=== PATIENT | female | born 1970 | race Caucasian/White ===

== ENCOUNTER 2023-09-08 16:57 | Inpatient (IN) | payer OTHER, SELFPAY ==
[2023-09-08] VITALS (10 sets, daily range): BP systolic 141–180; BP diastolic 69–104; BMI 28.7; BMI 27.7
--- NOTE | 2023-09-08 12:38 | ED.GENMED ---
History of Present Illness
<Naye Dunbar PA-C - Last Filed: 09/09/23 01:20>
General
Chief Complaint: Cardiac Symptoms
Source: patient
Exam Limitations: none
Time Seen by Provider: 09/08/23 12:25
Nursing documentation reviewed up to this point in time: agreed with
Travel History
Have you had any contact with someone who has COVID-19?: No
Do you have any symptoms of coronavirus? Fever > 100 degrees, chills, cough, shortness of breath, sore throat, loss of taste or smell, muscle aches, or headache?: No
History of Present Illness
History of Present Illness:
Patient is a 53 year old with hx hypothyroid presenting for evaluation of left-sided chest pain with radiation to the back. Patient states that chest pain woke her up from her sleep at 5 AM this morning which she describes as a pressure type
sensation in the left mid chest with some radiation into her bilateral shoulders and arms. She also endorses an intense muscular pain in her mid upper back. She denies any exudative or pleuritic component to pain. She denies any shortness of
breath, GI symptoms, symptoms.
Patient denies any recent strenuous activities or trauma.
She denies any history of blood clots or family history of clotting disorders. No recent travel. No recent surgeries.
Of note�she does state that she was fairly sick about 10 days ago with an upper respiratory infection. Symptoms have been improved for the past week. She denies any recent fever, cough, or abdominal pain.
Past History
<Naye Dunbar PA-C - Last Filed: 09/09/23 01:20>
Past History
ED Past Medical History: Hypothyroidism
ED Past Surgical History: None and Other (Thyroidectomy)
Social History
Tobacco: Non-smoker
Personal:
Living: with family
Employment: Employed
Phy Exam
<Naye Dunbar PA-C - Last Filed: 09/09/23 01:20>
Physical Exam
Physical Exam:
General: Well appearing and non-toxic
Vitals: Hypertensive, otherwise vital signs stable, afebrile
HEENT: Atraumatic, normocephalic; pupils equal round and reactive to light bilaterally, extraocular muscle intact, protecting airway
Neck: appears supple, no JVD
CV: Regular rate and rhythm, heart sounds normal, no evidence of cyanosis
Resp: No evidence of respiratory distress, lungs clear
Abd: Soft, nontender, non-distended
Extremities: No deformities, no evidence of cyanosis or edema; DP pulses palpable bilaterally
Neuro: alert and oriented x 3; grossly intact
Psych: Normal affect
Skin: Intact, no rashes
Scores
<MARCELL Ochoa Last Filed: 09/09/23 01:20>
Heart Score for Chest Pain Patients
STEMI patient?: No
History: Moderately Suspicious
ECG: Normal
Age: >45 - <65 years
Risk Factors: No Risk Factors
Troponin: >1 - <3 x Normal Limit
Heart Score for Chest Pain Patients: 3
Heart Score Risk: 2.5% MACE over next 6 weeks
Course
<MARCELL Ochoa Last Filed: 09/09/23 01:20>
Orders/Labs/Results
Orders:
Orders
09/08/23 Lunch
Cholesterol Lowering
At Your Request: Full Participation
Does patient need a safe tray?: No
09/08/23 12:10
EKG [Electrocardiogram (*1)] Urgent
Reason for Study: Chest Pain
EKG- Treatment ONCE
09/08/23 12:51
C-Reactive Protein Urgent
Comment: ADD ON
Complete Blood Count/With Diff Urgent
Comprehensive Metabolic Panel Urgent
D-Dimer Urgent
Erythrocyte Sed Rate Urgent
Comment: ADD ON
PTT Urgent
Comment: ADD ON
Troponin I Urgent
09/08/23 13:14
CR Chest - 2 Views Urgent
Comment:
Reason For Exam: left sided chest pain, radiation into back
09/08/23 13:33
CT Chest Pe Study Urgent
Comment:
Reason For Exam: chest pain/upper back pain; elevated troponin
09/08/23 14:45
Aspirin Chewable [Low Strength Aspirin] 324 mg PO NOW STA
09/08/23 15:27
Heparin 4,000 units IV NOW STA
Nursing to Place Non Medication Order As Directed
Physician Order: PTT 6 hours after initial start of Heparin infusion
Above order entered?: Yes
09/08/23 15:28
Consult Cardiology [CARDIOLOGY CONSULT] Urgent
Consulting Provider: Orlando Carrion
Was physician already notified: Yes
Nitroglycerin Sublingual [Nitrostat (Sublingual)] 0.4 mg SL NOW STA
09/08/23 15:30
Heparin 41749 Units/250 ml 25,000 units in 250 ml IV PER PROTOCOL
Weight to be used for heparin protocol in kilograms (kg):: 80.6
Protocol:: Cardiac Tx/Acute Coronary
PTT Goal Range to be used:: PTT 73 to 111 seconds
Order type:: Initial
INITIAL Infusion Dose (UNITS/KG/hr) & then follow protocol:: 15 units/kg/hr
Infusion Dose in UNITS/hr & then follow protocol (UNITS/hr):: 1,200
INFUSION RATE in mL/hr & then follow protocol (mL/hr):: 12
PTT less than or equal to 64 seconds:: Increase rate by 200 units/hr (+ 2 mL/hr)
PTT 64.1 to 72.9 seconds:: Increase rate by 100 units/hr (+ 1 mL/hr)
PTT 73 to 111 seconds:: Target Range. No change in rate.
PTT 111.1 to 130.9 seconds:: Decrease rate by 100 units/hr (- 1 mL/hr)
PTT 131 to 199.9 seconds:: HOLD for 1 hr. Then decrease rate by 200 units/hr (- 2 mL/hr)
PTT greater than or equal to 200 seconds:: HOLD for 2 hrs & Notify Provider. Then decrease by 200 units/hr (-
2 mL/hr)
Lab follow-up:: Each change, PTT q6h until 2 consecutive are therapeutic. Then PTT
daily.
09/08/23 15:39
Add On- LAB Urgent
Tests Added?: PTT
09/08/23 15:46
Admit/Transfer Patient As Directed
Co-Sign Provider:
Level of Care: Inpatient admission
Assign to:: IVU
Physician / Group: Hospitalist
Diagnosis: Chest pain
Reason for Hospitalization: .
Expected length of stay greater than two midnights?: Yes
ELOS- Estimated Length of Stay in days: 3
I certify the patient meets the requirements for IP care: Yes
09/08/23 15:47
Code Status As Directed
Resuscitation Status: Full Code
09/08/23 15:51
Troponin I Urgent
09/08/23 16:51
Clopidogrel Bisulfate [Plavix] 600 mg PO NOW STA
09/08/23 17:59
Nitroglycerin 100 mg/250 ml [Nitroglycerin Premix] 100 mg in 250 ml IV PER PROTOCOL
Currently infusing. Continue current dose and titrate:: Yes
Titrate to keep:: MAP 70-100 mmHg
Titrate by mcg/min:: 5 mcg/min, may increase by 10 mcg/min if dose > 20 mcg/min
Frequency of titrations (minutes):: every 3-5 minutes
Maximum dose in mcg/min:: 200
Begin to taper infusion when:: Remained at goal for 2hrs
Taper by mcg/min:: 5 mcg/min
Frequency of taper (minutes) if patient maintains goal:: 30
Taper to off?: Yes
If infusion off & no longer maintaining goal:: Contact Provider
09/08/23 17:59
Echo 2D MMode Color/Doppler [Echo 2D MMode Color/Doppler] Routine
Reason for Study: chest pain
09/08/23 22:27
PTT Routine
09/09/23 07:00
Levothyroxine [Synthroid] 125 mcg PO DAILY AT 0700
09/09/23 08:00
Aspirin Chewable [Low Strength Aspirin] 81 mg PO DAILY
Clopidogrel Bisulfate [Plavix] 75 mg PO DAILY
Abnormal Lab Results
09/08/23 09/08/23
12:51 15:51
WBC 11.3 H 10^3/uL
(4.8-10.8)
MCH 31.4 H pg
(27.0-31.0)
Plt Count 453 H 10^3/uL
(130-400)
Absolute Neuts (auto) 8.4 H 10^3/uL
(1.4-6.5)
Absolute Monos (auto) 0.7 H 10^3/uL
(0.1-0.6)
Lymphocytes % 18.5 L %
(20.5-51.1)
APTT 23.3 L Sec
(23.4-35.0)
Sodium 134 L mmol/L
(135-145)
Glucose 100 H mg/dl
(70-99)
Troponin I 0.170 H* ng/ml 0.596 H* D ng/ml
09/08/23 12:51
09/08/23 12:51
Vital Signs
Initial and Last Documented VS:
Initial Vital Signs
Temp Pulse Resp BP Pulse Ox
98.7 F 67 17 180/104 98
09/08/23 12:11 09/08/23 12:11 09/08/23 12:11 09/08/23 12:11 09/08/23 12:11
Last Documented Vital Signs
Temp Pulse Resp BP Pulse Ox
97.9 F 65 18 171/84 97
09/08/23 23:10 09/08/23 22:20 09/09/23 00:13 09/08/23 22:20 09/08/23 23:10
<Ari Chakraborty MD - Last Filed: 09/08/23 15:33>
Orders/Labs/Results
Orders:
Orders
09/08/23 Lunch
Cholesterol Lowering
At Your Request: Full Participation
Does patient need a safe tray?: No
09/08/23 12:10
EKG [Electrocardiogram (*1)] Urgent
Reason for Study: Chest Pain
EKG- Treatment ONCE
09/08/23 12:51
C-Reactive Protein Urgent
Comment: ADD ON
Complete Blood Count/With Diff Urgent
Comprehensive Metabolic Panel Urgent
D-Dimer Urgent
Erythrocyte Sed Rate Urgent
Comment: ADD ON
PTT Urgent
Comment: ADD ON
Troponin I Urgent
09/08/23 13:14
CR Chest - 2 Views Urgent
Comment:
Reason For Exam: left sided chest pain, radiation into back
09/08/23 13:33
CT Chest Pe Study Urgent
Comment:
Reason For Exam: chest pain/upper back pain; elevated troponin
09/08/23 14:45
Aspirin Chewable [Low Strength Aspirin] 324 mg PO NOW STA
09/08/23 15:27
Heparin 4,000 units IV NOW STA
Nursing to Place Non Medication Order As Directed
Physician Order: PTT 6 hours after initial start of Heparin infusion
Above order entered?: Yes
09/08/23 15:28
Consult Cardiology [CARDIOLOGY CONSULT] Urgent
Consulting Provider: Orlando Carrion
Was physician already notified: Yes
Nitroglycerin Sublingual [Nitrostat (Sublingual)] 0.4 mg SL NOW STA
09/08/23 15:30
Heparin 99076 Units/250 ml 25,000 units in 250 ml IV PER PROTOCOL
Weight to be used for heparin protocol in kilograms (kg):: 80.6
Protocol:: Cardiac Tx/Acute Coronary
PTT Goal Range to be used:: PTT 73 to 111 seconds
Order type:: Initial
INITIAL Infusion Dose (UNITS/KG/hr) & then follow protocol:: 15 units/kg/hr
Infusion Dose in UNITS/hr & then follow protocol (UNITS/hr):: 1,200
INFUSION RATE in mL/hr & then follow protocol (mL/hr):: 12
PTT less than or equal to 64 seconds:: Increase rate by 200 units/hr (+ 2 mL/hr)
PTT 64.1 to 72.9 seconds:: Increase rate by 100 units/hr (+ 1 mL/hr)
PTT 73 to 111 seconds:: Target Range. No change in rate.
PTT 111.1 to 130.9 seconds:: Decrease rate by 100 units/hr (- 1 mL/hr)
PTT 131 to 199.9 seconds:: HOLD for 1 hr. Then decrease rate by 200 units/hr (- 2 mL/hr)
PTT greater than or equal to 200 seconds:: HOLD for 2 hrs & Notify Provider. Then decrease by 200 units/hr (-
2 mL/hr)
Lab follow-up:: Each change, PTT q6h until 2 consecutive are therapeutic. Then PTT
daily.
09/08/23 15:39
Add On- LAB Urgent
Tests Added?: PTT
09/08/23 15:46
Admit/Transfer Patient As Directed
Co-Sign Provider:
Level of Care: Inpatient admission
Assign to:: IVU
Physician / Group: Hospitalist
Diagnosis: Chest pain
Reason for Hospitalization: .
Expected length of stay greater than two midnights?: Yes
ELOS- Estimated Length of Stay in days: 3
I certify the patient meets the requirements for IP care: Yes
09/08/23 15:47
Code Status As Directed
Resuscitation Status: Full Code
09/08/23 15:51
Troponin I Urgent
09/08/23 16:51
Clopidogrel Bisulfate [Plavix] 600 mg PO NOW STA
09/08/23 17:59
Nitroglycerin 100 mg/250 ml [Nitroglycerin Premix] 100 mg in 250 ml IV PER PROTOCOL
Currently infusing. Continue current dose and titrate:: Yes
Titrate to keep:: MAP 70-100 mmHg
Titrate by mcg/min:: 5 mcg/min, may increase by 10 mcg/min if dose > 20 mcg/min
Frequency of titrations (minutes):: every 3-5 minutes
Maximum dose in mcg/min:: 200
Begin to taper infusion when:: Remained at goal for 2hrs
Taper by mcg/min:: 5 mcg/min
Frequency of taper (minutes) if patient maintains goal:: 30
Taper to off?: Yes
If infusion off & no longer maintaining goal:: Contact Provider
09/08/23 17:59
Echo 2D MMode Color/Doppler [Echo 2D MMode Color/Doppler] Routine
Reason for Study: chest pain
09/08/23 22:27
PTT Routine
09/09/23 07:00
Levothyroxine [Synthroid] 125 mcg PO DAILY AT 0700
09/09/23 08:00
Aspirin Chewable [Low Strength Aspirin] 81 mg PO DAILY
Clopidogrel Bisulfate [Plavix] 75 mg PO DAILY
Abnormal Lab Results
09/08/23 09/08/23
12:51 15:51
WBC 11.3 H 10^3/uL
(4.8-10.8)
MCH 31.4 H pg
(27.0-31.0)
Plt Count 453 H 10^3/uL
(130-400)
Absolute Neuts (auto) 8.4 H 10^3/uL
(1.4-6.5)
Absolute Monos (auto) 0.7 H 10^3/uL
(0.1-0.6)
Lymphocytes % 18.5 L %
(20.5-51.1)
APTT 23.3 L Sec
(23.4-35.0)
Sodium 134 L mmol/L
(135-145)
Glucose 100 H mg/dl
(70-99)
Troponin I 0.170 H* ng/ml 0.596 H* D ng/ml
09/08/23 12:51
09/08/23 12:51
Vital Signs
Initial and Last Documented VS:
Initial Vital Signs
Temp Pulse Resp BP Pulse Ox
98.7 F 67 17 180/104 98
09/08/23 12:11 09/08/23 12:11 09/08/23 12:11 09/08/23 12:11 09/08/23 12:11
Last Documented Vital Signs
Temp Pulse Resp BP Pulse Ox
97.9 F 65 18 171/84 97
09/08/23 23:10 09/08/23 22:20 09/09/23 00:13 09/08/23 22:20 09/08/23 23:10
<Naye Dunbar PA-C - Last Filed: 09/09/23 01:20>
MDM/Problems Addressed
Differential Diagnosis Includes:
Pneumonia, PE, pericarditis, ACS, muscular strain, GERD, doubt dissection
MDM/Problems Addressed:
Patient is a 53 year old female with hx hypothyroid presenting for evaluation of acute onset chest discomfort at 5AM this morning with associated severe back discomfort and tingling down bilateral arms. No exertional or pleuritic component. No
fever, shortness of breath, GI symptoms. Symptoms somewhat improved since onset but chest discomfort and back pain persist. Patient is hypertensive, otherwise VSS. Physical exam as documented above. Heart rate regular, lungs clear. Chest pain
non-reproducible. Full cardiac workup. Check basic labs, troponin, chest xray. Although no shortness of breath- given radiation to back and current OCP use, will check dimer. EKG NSR without signs of ischemia.
CBC with mild leukocytosis, otherwise no clinically significant abnormalities. CMP without any clinically significant abnormalities. Initial troponin elevated at 0.170. Will repeat in 3 hours. Given elevation in troponin will get CTA chest.
CTA chest with no evidence of PE or acute disease of chest. Given symptoms have persisted with elevation in troponin will give 324 aspiring, 0.4 nitro, and start on heparin. Discussed case with cardiology who sees no abnormalities in ekg and
recommend admission to hospitalist. Cardiology will consult.
Will admit patient for further evaluation/management, serial troponins, and concern for NSTEMI. Discussed with hospitalist.
Chronic conditions affecting care:
Hypothyroid
Acute Exacerbation and/or Progression of Chronic Illness:
N/A
<Naye Dunbar PA-C - Last Filed: 09/09/23 01:20>
*Radiology
Radiology exam reviewed: radiology read reviewed
*Pulse Oximetry
Patient hypoxic: no
*EKG
Interpreted by ED Provider?: Yes
EKG Intrepretation Date: 09/09/23
Interpretation: normal
Comparison EKG: no comparison EKG present
Heart Rate: 65
Rate: normal
Rhythm: sinus
Villalba: normal axis
Interval: normal interval
QRS Pattern: normal QRS
Ischemia: no ischemia
*[employer] Interpretation
Rate: normal
Interpretation: normal
Rhythm: sinus
*Critical Care Note
Total Time (30-74mins, 75-104mins- exclusive of procedures): Not Applicable
<Naye Dunbar PA-C - Last Filed: 09/09/23 01:20>
Patient Management
Discussion with other providers: Hospitalist and Ferryboat Operator Helper (cardiology)
ED Attending Note
<Naye Dunbar PA-C - Last Filed: 09/09/23 01:20>
-
Portions of this chart may have been created with voice recognition software.� Occasional wrong word or��sound alike� substitutions may have occurred due to the inherent limitations of voice recognition software.
<Ari Chakraborty MD - Last Filed: 09/08/23 15:33>
ED Attending Note
Patient seen and examined by attending physician: Yes
ED Attending Note:
HPI: 53-year-old female with a past medical history of hypothyroidism presents to the emergency room evaluation of chest pain. Patient reports onset of symptoms at 5 AM she says they woke her from sleep and started rather suddenly. She reports a
dull aching pain in the left side of her chest that radiates through to her back; she says the pain is more sharp in the left scapular region. No clear triggering or relieving factors noted. She denies any associated shortness of breath. She
denies any dizziness. Denies any nausea, vomiting, diaphoresis. She says she has never had similar symptoms in the past. She denies any known history of cardiac issues. No known history of DVT/PE. No recent travel.
ROS: Positive for chest pain; negative for shortness of breath, nausea, vomiting, diaphoresis, cough, fevers, chills, leg pain, swelling her legs
Physical exam:
General: Awake, alert, oriented x3; no acute distress
Head: Normocephalic, atraumatic
Eyes: Conjunctiva normal, sclera anicteric
Throat: Airway intact, handling secretions
Neck: Trachea midline, supple without meningismus
Lungs: Clear to auscultation bilaterally, no wheezing, rales, rhonchi
Heart: Regular rate and rhythm, no murmurs, gallops, or rubs; no chest wall tenderness
Abd: Soft, non distended, nontender
Neuro: Cranial nerves grossly intact, speech fluid
Skin: no rash
Extremities: No edema in extremities, warm and well-perfused
Differential diagnosis: Pericarditis/myocarditis, costochondritis, pneumothorax, pulmonary embolism, aortic dissection, ACS/acute [place]
Medical decision makin-year-old female presents for acute onset chest pain radiating to the back. Hypertensive but otherwise normal vitals. Physical exam as above. EKG shows no STEMI. Labs sent off, CBC shows no significant abnormalities,
CMP within acceptable range. Her initial troponin is elevated at 0.170. She had a chest x-ray which showed no acute disease on independent review by me. She was sent for CTA of the chest which showed no PE and no clear dissection. She was given
nitroglycerin for chest pain as well as a full dose aspirin. Case discussed by physicians fws faculty assistant with the cardiology team for consultation. Will start on heparin drip and admit for further treatment, serial troponins with concern for NSTEMI.
Chronic conditions affecting care: N/A
Acute exacerbation or progression of chronic illness: Acutely hypertensive treated with nitroglycerin
History source: Patient
Data reviewed: N/A
Medications/testing considered: N/A
Social determinants of health: N/A
Discussion with other providers: Cardiology, hospitalist
Discharge Plan
Departure
Patient Disposition: Admit
Date of Disposition: 09/08/23
Time of Disposition: 15:29
Presentation/result/management discussed w/ accepting MD/DO: Hospitalist
Covid-19: Not Applicable
Discharge Problem:
Elevated troponin, Chest pain
Interventions
Interventions:
*Risk Screen - Suicide Last Done: 09/08/23 18:23
*General Assessment Last Done: 09/08/23 12:38
*Neglect/Abuse Screening Last Done: 09/08/23 12:38
*ED COVID-19 Vaccine History Last Done: 09/08/23 18:00
*Nursing Disposition Last Done: 09/08/23 17:59
ED- Pulmonary Assessment Last Done: 09/08/23 12:50
ED- Cardiac Assessment Last Done: 09/08/23 12:50
Discharge Date and Time
Discharge Date/Time: 09/08/23 17:59
[2023-09-08 13:10] LABS: % Basophils 0.4 % (0-2); % Eosinophils 0.2 % (0-6); % Immature Granulocytes 0.3 % (0-0.5); % Lymphocytes 18.5 % (20.5-51.1); % Monocytes 6.3 % (1.7-9.3); % Neutrophils 74.3 % (42.2-75.2); Absolute Lymphocytes 2.1 10^3/uL (1.2-3.4); Absolute Monocytes 0.7 10^3/uL (0.1-0.6); Absolute Neutrophils 8.4 10^3/uL (1.4-6.5); Hematocrit 38.5 % (37.0-47.0); Hemoglobin 13.2 g/dL (12.0-16.0); Mean Corp Hgb Conc. 34.3 g/dL (33.0-37.0); Mean Corpuscular Hgb 31.4 pg (27.0-31.0); Mean Corpuscular Volume 91.4 fL (81.0-99.0); Mean Platelet Volume 9.8 fL (7.4-10.4); Nucleated Red Blood Cells % 0 %; Platelet Count 453 10^3/uL (130-400); Red Blood Cell Count 4.21 10^6/uL (4.20-5.40); Red Cell Dist. Width 11.8 % (11.5-14.5); White Blood Cell Count 11.3 10^3/uL (4.8-10.8)
[2023-09-08 13:18] LABS: ALT (SGPT) 26 U/L (0-35); AST (SGOT) 33 U/L (14-36); Albumin 4.4 g/dl (3.5-5.0); Alkaline Phosphatase 66 U/L (38-126); Blood Urea Nitrogen 11 mg/dl (7-17); Calcium 9.4 mg/dl (8.4-10.2); Carbon Dioxide 25 mmol/L (22-30); Chloride 99 mmol/L (98-107); Estimated Creatinine Clearance 119 ml/min; Glucose 100 mg/dl (70-99); Sodium 134 mmol/L (135-145); Total Bilirubin 0.8 mg/dl (0.2-1.3); Total Protein 7.3 g/dl (6.3-8.2); eGFR > 60.00
[2023-09-08 13:41] LABS: D-Dimer 0.28 ug/mlFEU (0.00-0.50)
[2023-09-08] MEDS: LOW STRENGTH ASPIRIN 324 MG PO (14:59)
[2023-09-08] MEDS: HEPARIN 4000 UNITS IV (15:42)
[2023-09-08] MEDS: NITROSTAT (SUBLINGUAL) 0.400000000000000022 MG SL (15:42)
--- NOTE | 2023-09-08 15:46 | HPS.HSE ---
Family Physician
-
Family Physician: Juan Carmona
Chief Complaint
-
Chest pain
History of Present Illness
53 years old female presented with chest pain. Started this morning around 5 AM. Pain described as heaviness. Not associated with breathing or movement. She had flulike illness 2 weeks ago. She tested negative for COVID at home. She reports
walking half a mile with no shortness of breath or chest pain. No recent history of similar episodes. She takes contraception pills for more than 20 years. No cough. No fever. On admission, elevated white count around 11.3. Blood pressure was
on the higher side. Patient denied history of hypertension
Medical History
Past Medical History
Past Medical History: Reports Hypothyroidism
Past Surgical History: Reports Other (No recent major surgery)
Social History
Tobacco: Non-smoker
Alcohol: None
Drug: None
Personal:
Living: With Family
Employment: Employed
Family History
Family History: Other (Her father of colon cancer and he had ICD, believed cardiac illness was related to his cancer treatment)
Allergies / Home Medications
Allergies reflects when Allergies were last updated in [facility].
Home Medications with original date entered in [facility]
Allergy/Medication List:
Allergies
Allergy/AdvReac Type Severity Reaction Status Date / Time
No Known Allergies Allergy Verified 09/08/23 12:10
Home Medications
levothyroxine 150 mcg tablet (Synthroid) 150 mcg PO DAILY 09/08/23
multivitamin 1 tab PO DAILY 09/08/23
norgestimate 0.25 mg-ethinyl estradiol 35 mcg tablet (Estarylla) 1 tab PO HS 09/08/23
Review of Systems
-
History Source: Patient
A 12 point ROS was completed and negative except as noted: Yes
Constitutional: Denies Fever or Chills
EENT: Denies Sore Throat
Respiratory: Denies Cough
Cardiac: Reports Chest Pain
Abdomen/GI: Denies Abdominal Pain
: Denies Difficulty Voiding
Musculoskeletal: Denies Joint Pain
Skin: Denies Rash
Neurological: Denies Numbness
Endocrine: Denies Temp Intolerance
Hematologic/Lymphatic: Denies Bruising
Psych: Denies Panic Disorder
Physical Exam
Vital Signs
Vital Signs
Temp Pulse Resp BP Pulse Ox
98.7 F 57 16 153/82 100
09/08/23 12:11 09/08/23 12:50 09/08/23 12:50 09/08/23 12:50 09/08/23 12:50
Physical Exam
General: Well Nourished, No Apparent Distress and Comfortable
HEENT: Moist mucous membranes and Atraumatic
Respiratory: Clear
Cardiac: S1/S2 and Regular Rhythm; No Murmur
GI: Soft and Non Tender
Genito-urinary: No costovertebral tender
Musculoskeletal: No Cyanosis and No Edema
Skin: Warm and Dry; No Jaundice
Neuro: AO x 3 and Nonfocal/grossly intact; No Slurred Speech, Facial Droop or Tremors
Psych: Calm and Intact Judgment/Insight
Laboratory Results
-
09/08/23 12:51
09/08/23 12:51
Laboratory Results
APTT Cancelled 09/08/23 15:27
Total Bilirubin 0.8 mg/dl (0.2-1.3) 09/08/23 12:51
AST 33 U/L (14-36) 09/08/23 12:51
ALT 26 U/L (0-35) 09/08/23 12:51
Alkaline Phosphatase 66 U/L (38-126) 09/08/23 12:51
Troponin I 0.170 ng/ml H* 09/08/23 12:51
Impression/Plan
-
IMPRESSION:
53 years old female presented with chest pain
#Chest pain rule out acute coronary syndrome
Troponin positive at 0.17 then 0.59
Pain is relatively better with sublingual nitro
No family history of premature coronary artery disease
Recent flulike illness.
Pain described as heaviness, not associated with breathing or moving
Admit the patient to the hospital
EKG no acute ischemic changes
Start the patient on IV heparin
Start the patient on IV nitroglycerin
Order echocardiogram
Trend troponin
Antiplatelet therapy
Appreciate cardiology input.
# Positive leukocytosis
Will check ESR and CRP
No fever or cough.
Recent flulike illness, rule out pericarditis. EKG no acute changes.
# Mild hyponatremia, monitor
# DVT prophylaxis
Total time spent to see the patient, examine the patient on the floor, review data and lab results, discuss treatment plan with patient, nursing staff and ER doctor around 75 minutes
[2023-09-08] MEDS: HEPARIN 25000 UNITS/250 ML IV (15:47)
[2023-09-08 16:06] LABS: APTT 23.3 Sec (23.4-35.0)
[2023-09-08 16:26] LABS: Troponin I 0.596 ng/ml
[2023-09-08] MEDS: PLAVIX 600 MG PO (17:36)
[2023-09-08 17:49] LABS: Erythrocyte Sed Rate 6 mm/hour (0-20)
--- NOTE | 2023-09-08 19:02 | PTCARENOTE ---
Pt received from the ED alert and oriented. C/o of 4/10 chest and upper back pain. Room air sat 100%. Denies any sob. IV heparin infusing at 12ml/hr as ordered. Monitor shows SR, rate in the 70's.
--- NOTE | 2023-09-08 19:12 | CON.CAR ---
Addendum entered and electronically signed by Orlando Carrion MD 09/08/23 19:22:
Will hold off on IV nitroglycerin for now. Discussed with nursing at bedside
Original Note:
Consultation
Consultation Request
Date/Time Consultation Requested: 09/08/2023 16: 00
Date/Time Consultation Performed: 09/08/2023 18: 00
Requesting Provider: Millie
Performing Provider: Murali
Reason for Consultation: chest pain, nstemi
Medical History
-
Chief Complaint: Chest pain
History of Present Illness:
Pat has a history of hypothyroidism. She presents for evaluation of chest discomfort starting at 5 AM this morning. She normally is active able to walk half a mile without issues. She had severe bilateral back and chest pain. She also had
tingling down her arm. Initially it was 9 out of 10. It persisted for approximately 6 hours and then she came to the ER. She got a nitroglycerin which caused lightheadedness and headache. The discomfort gradually got better throughout the day.
Troponins went from 0.17 to 0.6. The present time she complains of chest discomfort at 4 out of 10 but feels it has improved significantly. She denies any more medications for chest pain at the present time. She has been given IV heparin and
Plavix.
Past Medical History
Past Medical History: Hypothyroidism
Past Surgical History: Other (Status post thyroidectomy)
Social History
Tobacco: Non-Smoker
Alcohol: Daily
Drug: None
Personal:
Living: With Family
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
Family History
Family History: Other (Father had pacemaker and at 76, mother is 81 and well)
Allergies / Home Medications
Allergy/AdvReac Type Severity Reaction Status Date / Time
No Known Allergies Allergy Verified 09/08/23 12:10
Medication Instructions Recorded Confirmed Type
levothyroxine 150 mcg tablet 150 mcg PO DAILY 09/08/23 09/08/23 History
(Synthroid)
multivitamin 1 tab PO DAILY 09/08/23 09/08/23 History
norgestimate 0.25 mg-ethinyl 1 tab PO HS 09/08/23 09/08/23 History
estradiol 35 mcg tablet (Estarylla)
Review of Systems
-
History Source: Patient
All other systems: Negative unless noted
Constitutional: No Symptoms
EENT: No Symptoms
Respiratory: No Symptoms
Cardiac: Chest Pain
Abdomen/GI: No Symptoms
: No Symptoms
Musculoskeletal: No Symptoms
Skin: No Symptoms
Neurological: No Symptoms
Endocrine: No Symptoms
Hematologic/Lymphatic: No Symptoms
Physical Exam
Vital Signs
Temp Pulse Resp BP Pulse Ox
98.2 F 68 18 152/75 100
09/08/23 18:08 09/08/23 18:15 09/08/23 18:08 09/08/23 18:06 09/08/23 18:17
Lab Results
09/08/23 12:51
09/08/23 12:51
Troponin I Cancelled 09/08/23 23:59
General: Well developed, well nourished in NAD.
Neck: Supple, no JVD, HJR, carotids +2 B/L, no bruits bilaterally.
Heart: Non displaced PMI, RRR, no murmurs, No S3, S4, no rubs.
Lungs: Clear to auscultation bilaterally, no wheeze, rhonchi, rubs bilaterally,
normal expiratory phase.
Abdomen: Normal bowel sounds, soft, non-tender, non-distended.
Extremities: No clubbing, cyanosis or edema bilaterally.
Neuro: Grossly nonfocal, awake, alert and oriented x3.
Impression / Plan
-
Impression:
Chest pain/non-STEMI
History of hypothyroidism
2.5 mm nodule and left apex of lung
Paracentral disc protrusion at T 7�8
CT of chest 09/08/2023: Negative for pulmonary embolism
Plan:
She has ruled in for a non-STEMI. Etiology may be due to CAD but EKG is normal and she has a paucity of cardiac risk factors. Another possibility could be pericarditis with epi myocarditis. Will treat as active coronary disease with IV heparin,
Plavix, beta-samy. Will also add statin until results of catheterization are known. control pill could be a contributing factor and may need to be discontinued. Of note she is on a by twice at present time.
She is has some level of chest discomfort but feels it has dramatically improved. We discussed possibly adding more medications such as morphine but she declines. Will plan on catheterization on Saturday 09/09 or sooner if pain worsens or if
troponins trend significantly higher.
Data Reviewed
-
EKG: Tracing Personally Visualized and interpreted
Radiology: Report Reviewed by me
CT Scan: Report Reviewed by me
Medical Tests (Nuc Med, Echo etc): Report Reviewed by me
Labs: Labs Reviewed by me
Old Records: Reviewed
[2023-09-08] MEDS: LOPRESSOR 25 MG PO (20:09)
[2023-09-08] MEDS: LIPITOR 40 MG PO (20:10)
[2023-09-08 22:48] LABS: APTT 47.5 Sec (23.4-35.0)
--- NOTE | 2023-09-09 01:26 | PTCARENOTE ---
Sleeping at intervals. Heparin infusing at 1400 units/hr. MSAS has been a 0. SR on the monitor in the 60's to 70's. No complaints at present.
[2023-09-09 05:43] VITALS: BP 146/82
[2023-09-09] MEDS: SYNTHROID 125 MCG PO (05:50)
[2023-09-09 06:20] LABS: APTT 64.8 Sec (23.4-35.0)
[2023-09-09 06:31] LABS: Troponin I 0.963 ng/ml
[2023-09-09 06:32] LABS: HDL Cholesterol 66 mg/dl; LDL Cholesterol, Calculated 89 mg/dl; Total Cholesterol 192 mg/dl (50-199); Triglyceride 189 mg/dl (10-149); Very Low Density Lipoprotein 37 mg/dl (0-30)
--- NOTE | 2023-09-09 06:32 | W.PN.HOSP.TC ---
Today's Communication/Plan
-
.
Assessment / Plan
Assessment / Plan
Physical Exam
General: Well Nourished, No Apparent Distress and Comfortable
HEENT: Moist mucous membranes and Atraumatic
Respiratory: Clear
Cardiac: S1/S2 and Regular Rhythm; No Murmur
GI: Soft and Non Tender
Genito-urinary: No costovertebral tender
Musculoskeletal: No Cyanosis and No Edema
Skin: Warm and Dry; No Jaundice
Neuro: AO x 3 and Nonfocal/grossly intact; No Slurred Speech, Facial Droop or Tremors
Psych: Calm and Intact Judgment/Insight
53 years old female presented with chest pain
#Chest pain with elevated troponin rule out acute coronary syndrome
Clinical picture consistent with non-ST elevation myocardial infarction
She is not having chest pain.
Troponin peaked at 1.2
Repeat EKG normal sinus rhythm with nonspecific T wave abnormalities
Continue with IV heparin, antiplatelet therapy with aspirin and Plavix. Lipitor 40 mg every afternoon. Beta-samy.
Order echocardiogram
Plan for heart catheterization on Saturday 09/09
Appreciate cardiology input
# Hypertensive emergency with chest pain and positive troponin/acute coronary syndrome
Blood pressure is better controlled, a.m. blood pressure 134/87
Continue with beta-samy
# Positive leukocytosis
Normal ESR and CRP
No fever or cough.
Recent flulike illness, ruled out pericarditis.� EKG no acute changes.
# Mild hyponatremia, monitor
# DVT prophylaxis
Total time spent to see the patient, examine the patient on the floor, review data and lab results, discuss treatment plan with patient, nursing staff and color control operator around 55 minutes
Anticipated Discharge: 24 - 48 hours
Subjective/Interval History
-
Date of Service: September 09, 2023
No chest pain
No sob
Objective Data
-
Labs:
Laboratory Results
09/08/23 09/09/23
22:27 05:49
APTT 47.5 H 64.8 H
Vital Signs:
Vital Signs
Temp Pulse Resp BP Pulse Ox
97.9 F 65 18 171/84 97
09/08/23 23:10 09/09/23 04:00 09/09/23 00:13 09/08/23 22:20 09/08/23 23:10
[2023-09-09 07:16] VITALS: BP 134/87
[2023-09-09] MEDS: LOPRESSOR 25 MG PO ×2 (07:51→21:18)
[2023-09-09] MEDS: LOW STRENGTH ASPIRIN 81 MG PO (07:51)
[2023-09-09] MEDS: PLAVIX 75 MG PO (07:51)
[2023-09-09 11:31] VITALS: BP 144/82
[2023-09-09] MEDS: HEPARIN 25000 UNITS/250 ML IV (12:27)
--- NOTE | 2023-09-09 13:22 | W.PN.CARDCBS ---
Addendum entered and electronically signed by Orlando Carrion MD 09/09/23 13:28:
ldl 89 cont lipitor for now until cath results
Original Note:
Today's Communication / Plan
-
Chest Pain-free
Continue IV heparin
For catheterization on 09/09
Impression / Plan
-
Impression:
Chest pain/non-STEMI with peak troponin of 1.2
History of hypothyroidism
2.5 mm nodule and left apex of lung
Paracentral disc protrusion at T 7�8
CT of chest 09/08/2023: Negative for pulmonary embolism
Plan:
She remains pain-free
Continue IV heparin, aspirin, Plavix, Lopressor, lipitor
For cardiac catheterization on 09/09
Unclear if this could be coronary spasm or clot or obstructive coronary disease
Discussed with patient, family, nurse
Likely discontinue control pills permanently
Progress Note - Lead Sharepoint Developer
Subjective
Date of Service: September 09, 2023
No chest pain or shortness of breath
Objective
Labs:
09/08/23 12:51
09/08/23 12:51
Labs
Hgb 13.2 g/dL (12.0-16.0) 09/08/23 12:51
Hct 38.5 % (37.0-47.0) 09/08/23 12:51
Plt Count 453 10^3/uL (130-400) H 09/08/23 12:51
APTT 64.8 Sec (23.4-35.0) H 09/09/23 05:49
Sodium 134 mmol/L (135-145) L 09/08/23 12:51
Potassium 4.0 mmol/L (3.5-5.1) 09/08/23 12:51
BUN 11 mg/dl (7-17) 09/08/23 12:51
Creatinine 0.6 mg/dL (0.6-1.0) 09/08/23 12:51
Glucose 100 mg/dl (70-99) H 09/08/23 12:51
Troponins
09/08/23 09/08/23 09/08/23
12:51 15:51 17:59
Troponin I 0.170 H* 0.596 H* D Cancelled
09/08/23 09/08/23 09/08/23
18:00 22:27 23:59
Troponin I Cancelled 1.240 H* D Cancelled
09/09/23
05:49
Troponin I 0.963 H*
Vital Signs and I&O:
Vital Signs
Temp Pulse Resp BP Pulse Ox
98.2 F 59 16 144/82 99
09/09/23 11:31 09/09/23 11:31 09/09/23 11:31 09/09/23 11:31 09/09/23 11:31
Vital Signs
Temp Pulse Resp BP Pulse Ox
98.2 F 59 16 144/82 99
09/09/23 11:31 09/09/23 11:31 09/09/23 11:31 09/09/23 11:31 09/09/23 11:31
Intake & Output
09/07/23 09/08/23 09/09/23 09/10/23
05:59 05:59 06:59 06:59
Intake Total 480 / 480
Balance 480 / 480
Physical Exam
Physical Exam
General: Well developed, well nourished in NAD.
Neck: Supple, no JVD, HJR, carotids +2 B/L, no bruits bilaterally.
Heart: Non displaced PMI, RRR, no murmurs, No S3, S4, no rubs.
Lungs: Clear to auscultation bilaterally, no wheeze, rhonchi, rubs bilaterally,
normal expiratory phase.
Extremities: No clubbing, cyanosis or edema bilaterally.
Neuro: Grossly nonfocal, awake, alert and oriented x3.
[2023-09-09 13:44] LABS: APTT 72.1 Sec (23.4-35.0)
[2023-09-09 15:53] VITALS: BP 156/83
[2023-09-09] MEDS: LIPITOR 40 MG PO (16:59)
--- NOTE | 2023-09-09 18:08 | PTCARENOTE ---
Pt with no c/o of any chest or back pain today. OOB ambulating in the room. Resting in bed most of the day. Heparin infusing as ordered.
[2023-09-09 19:09] VITALS: BP 130/82
[2023-09-09 21:32] LABS: APTT 91.8 Sec (23.4-35.0)
--- NOTE | 2023-09-09 22:06 | PTCARENOTE ---
Resumed care at 1900.Patient appears comfortable. Heparin infusing per MAR. Anxious about needles. PTT collected at 2100 and sent. Is complaining of post nasal drip and mild cough. Lungs CTA. Encouraged to elevate the bed while sleeping. Plan of
care reviewed, call mar in reach
[2023-09-09 22:50] VITALS: BP 123/70
[2023-09-10] VITALS (10 sets, daily range): BP systolic 105–129; BP diastolic 61–82
[2023-09-10] MEDS: HEPARIN 25000 UNITS/250 ML IV (04:03)
[2023-09-10 04:27] LABS: Hematocrit 36.2 % (37.0-47.0); Hemoglobin 12.6 g/dL (12.0-16.0); Mean Corp Hgb Conc. 34.8 g/dL (33.0-37.0); Mean Corpuscular Hgb 31.6 pg (27.0-31.0); Mean Corpuscular Volume 90.7 fL (81.0-99.0); Mean Platelet Volume 9.6 fL (7.4-10.4); Platelet Count 391 10^3/uL (130-400); Red Blood Cell Count 3.99 10^6/uL (4.20-5.40); Red Cell Dist. Width 11.8 % (11.5-14.5); White Blood Cell Count 9.6 10^3/uL (4.8-10.8)
[2023-09-10 04:41] LABS: APTT 107.7 Sec (23.4-35.0)
[2023-09-10 05:42] LABS: ALT (SGPT) 21 U/L (0-35); AST (SGOT) 31 U/L (14-36); Albumin 3.8 g/dl (3.5-5.0); Alkaline Phosphatase 53 U/L (38-126); Blood Urea Nitrogen 11 mg/dl (7-17); Calcium 9.1 mg/dl (8.4-10.2); Carbon Dioxide 20 mmol/L (22-30); Chloride 108 mmol/L (98-107); Estimated Creatinine Clearance 117 ml/min; Glucose 92 mg/dl (70-99); Magnesium 2.1 mg/dl (1.6-2.3); Potassium 4.1 mmol/L (3.5-5.1); Sodium 135 mmol/L (135-145); Total Bilirubin 0.7 mg/dl (0.2-1.3); Total Protein 6.6 g/dl (6.3-8.2); eGFR > 60.00
[2023-09-10] MEDS: LOPRESSOR 25 MG PO (07:55)
[2023-09-10] MEDS: SYNTHROID 125 MCG PO (07:55)
[2023-09-10] MEDS: LOW STRENGTH ASPIRIN 81 MG PO (07:55)
[2023-09-10] MEDS: PLAVIX 75 MG PO (07:55)
--- NOTE | 2023-09-10 08:02 | PTCARENOTE ---
assumed care of pt from previous shift RN, sinus bradycardia on tele w HR 56-58, + peripheral pulses, no edema, pt denies CP or SOB, lungs CTA, NPO maintained pre [facility], voids spontaneously. PIV to right AC w heparin infusing at 1600 units/hr. EKG
completed as ordered. Plan of care reviewed w the pt and questions encouraged.
[2023-09-10 09:30] LABS: HCG, Urine Qualitative Screen Negative
--- NOTE | 2023-09-10 09:35 | PTCARENOTE ---
pt send to [facility]
--- NOTE | 2023-09-10 10:45 | ITS.CL.CATH ---
[facility] - Catheterization
Cardiac Catheterization
Procedure Report:
LEFT HEART CATHETERIZATION
Date of Procedure: September 10, 2023
Referring: Dr. Orlando Carrion
PROCEDURES:
1. Left heart catheterization with coronary and single-plane left ventriculography
INDICATION: 53-year-old female oral contraceptive who presented to [facility] following the onset of substernal chest pain that awoke her from sleep. She subsequently ruled in for a small non-ST segment elevation myocardial infarction with
peak troponin measuring 1.24 ng/mL.
ACCESS: Right radial artery, 6 Maori sheath
HEMODYNAMICS : (mmHg)
AO (s/d) : 164/85
LV (s/d) : 162/23
LVEDP : 33
CORONARY FINDINGS
DOMINANCE: Right
LEFT MAIN: Normal
LEFT ANTERIOR DESCENDING: The LAD arises normally from the left main and runs in the anterior interventricular groove. A large septal cascade arises proximally from the LAD. A single diagonal branch is noted in the mid LAD and bifurcates in its
midportion. The apical LAD tapers to a small caliber vessel and reaches but does not wraparound the apex. No significant coronary disease is noted.
CIRCUMFLEX: The circumflex is a medium caliber nondominant vessel that supplies a single sizable obtuse marginal branch. No significant coronary disease is detected.
RIGHT CORONARY ARTERY: The right coronary artery is a dominant vessel that is widely patent. The PDA arises from the distal RCA and is widely patent. The posterolateral branch bifurcates distally. No significant coronary disease is noted
VENTRICULOGRAPHY: The digital single-plane left ventricular ejection fraction is visually estimated around 50% with mild global hypokinesis
RADIATION SUMMARY: Fluoro Time (min): 4.5, Dose (mGy): 295, DAP (Gy.cm2) : 28.8
Closure Device: TR band
CONCLUSIONS
1. Elevated troponin with nonobstructive coronary disease
2. Low normal LVEF with mild global hypokinesis
RECOMMENDATIONS
1. Will check echocardiogram
2. Would continue aspirin and clopidogrel. Clopidogrel for 6-12 months would be reasonable given elevated troponin in setting of chest discomfort
3. Needs aggressive control of blood pressure and guideline directed medical therapy for risk modification
Copy to: Dr. Orlando Carrion
--- NOTE | 2023-09-10 11:22 | PTCARENOTE ---
received pt from [facility], VSS, pt denies pain or SOB. Radial band intact. Echo being preformed at bedside.
--- NOTE | 2023-09-10 11:52 | PTCARENOTE ---
3ml air removed from radial band, site remains intact.
--- NOTE | 2023-09-10 12:13 | PTCARENOTE ---
slight ooze s/p air removal from radial band, air replaced, carlton doan made aware. Instructed to try to removed 2ml air at 12:30.
--- NOTE | 2023-09-10 12:24 | W.PN.HOSP.TC ---
Addendum entered and electronically signed by Shan Perdomo MD 09/12/23 14:08:
NSTEMI
Original Note:
Today's Communication/Plan
-
Echo pending
Continue aspirin and Plavix
Monitor blood pressure
Plan for tentative DC later today
Assessment / Plan
Assessment / Plan
53 years old female presented with chest pain
#Chest pain
#non-ST elevation myocardial infarction
She is not having chest pain.
Troponin peaked at 1.2
Repeat EKG normal sinus rhythm with nonspecific T wave abnormalities
Status post IV heparin
antiplatelet therapy with aspirin and Plavix. Plavix course approximately 6 to 12 months and can be evaluated as outpatient.
Lipitor 40 mg every afternoon. Beta-samy.
Order echocardiogram pending
Status post cardiac catheterization without any intervention required. Nonobstructive coronary disease.
Blood pressure and heart rate well-controlled
Appreciate cardiology input
# Hypertensive emergency with chest pain and positive troponin/acute coronary syndrome
Continue with beta-samy and lisinopril
# Positive leukocytosis
Normal ESR and CRP
No fever or cough.
Recent flulike illness, ruled out pericarditis.� EKG no acute changes.
Resolved
# Mild hyponatremia, monitor
# DVT prophylaxis SCDs
Anticipated Discharge: Today
Subjective/Interval History
-
Date of Service: September 10, 2023
Seen postcardiac catheterization
Denies any chest pain
Denies any right upper extremity pain and cardiac cath site
Objective Data
-
Labs:
Laboratory Results
09/10/23
04:18
WBC 9.6
Hgb 12.6
Hct 36.2 L
Plt Count 391
APTT 107.7 H
Sodium 135
Potassium 4.1
Chloride 108 H
Carbon Dioxide 20 L
BUN 11
Creatinine 0.6
Glucose 92
Calcium 9.1
Total Bilirubin 0.7
AST 31
ALT 21
Alkaline Phosphatase 53
Vital Signs:
Vital Signs
Temp Pulse Resp BP Pulse Ox
97.8 F 48 18 112/80 98
09/10/23 11:00 09/10/23 12:10 09/10/23 11:00 09/10/23 12:10 09/10/23 11:00
I&O
09/09/23 09/10/23 09/11/23
06:59 06:59 06:59
Intake Total 600 / 600 184 / 184
Balance 600 / 600 184 / 184
Physical Exam
-
General: Well Developed and No Apparent Distress
HEENT: Normocephalic, Atraumatic and Moist Mucous Membranes
Respiratory: Clear to Auscultation
Cardiac: Regular Rhythm and S1/S2; Negative Murmur, Rub or Gallop
GI: Soft, Nontender, Nondistended and Normal Bowel Sounds; Negative Organomegaly
Rectal: Deferred by Provider
Musculoskeletal: No Clubbing, No Cyanosis, No Edema and Other (Right radial band noted. No swelling or hematoma noted.)
Skin: Negative Rash
Neuro: Awake, Alert, Oriented, AO x 3 and Nonfocal/Grossly Intact
Psych: Calm
--- NOTE | 2023-09-10 14:24 | CM ---
Reviewed misty. Met with Mrs. Alanis to review discharge plans. She states prior to admission she resides with her spouse, mother and son in a one stroy jacque with two steps to enter. She states prior to admission she was independent with ambulation
and adls. She states she does not have any DME in the home. She states she has a prescription plan and uses [facility]acy. We reviewed if she would like to talk to someone in [facility] regarding cessation or reducing her alcohol
consumption. At this time she is not interested in a formal alcohol cessation program. Medical work-up in progress. The discharge plan is to return home with her spouse, mother and son when medically stable.
--- NOTE | 2023-09-10 14:26 | W.DCSUMMARY ---
Discharge Summary
Discharge Data
Date of Admission: 09/08/23
Date of Discharge: 09/10/23
-
Pending Results: No
Hospital Course
53-year-old female who is presented with chest pain. Patient was found to have elevated troponin. EKG nonspecific with normal sinus rhythm with nonspecific T wave abnormalities. Patient was on IV heparin. Patient was eval by cardiology. Patient
was started on aspirin. Patient underwent coronary catheterization found with nonobstructive coronary artery disease. Low normal EF and mild global hypokinesis. Patient subsequently afterwards underwent echocardiogram which showed EF of 55 to
60%. Normal diastolic function. Mild to moderate mitral tricuspid regurgitation. Patient echocardiogram was also discussed with Dr. Carrion and Dr. Viera. Cardiology recommended continue current medical management of goal-directed medical
therapy with aspirin, Plavix, metoprolol and lisinopril. Patient outpatient cardiology follow-up was arranged.
Discharge Plan
-
Patient Disposition: Home (Routine Discharge)
Discharge Diagnosis/Procedures: NSTEMI, s/p cardiac catheterization
Hypertension emergency
Leukocytosis
Mild hyponatremia
Condition: Fair
Diet: Low Cholesterol
Driving Restrictions: No driving for 24 hours
Other Services: Cardiac Rehab
Activity Restrictions/Additional Instructions:
Incidental 2.5 mm left upper lobe nodule, of doubtful clinical significance. Follow-up in one year with repeat CT chest recommended via primary doctor.
Stand Alone Forms: DC Instructions- Cath/EP Lab
Referrals:
Doreen Rodriguez CRNP [Specified Professional Personl] - 09/27/23 9:20 am (Cardiology followup appointment)
Juan Carmona DO [Family Provider] -
Additional Discharge Medication Instructions: Recommend to stop Estarylla.
Prescriptions:
New
atorvastatin 40 mg Tablet
40 mg PO QPM 30 Days Qty: 30 0RF
clopidogrel 75 mg Tablet
75 mg PO DAILY 30 Days Qty: 30 0RF
aspirin [Children's Aspirin] 81 mg Tablet,Chewable
81 mg PO DAILY 30 Days Qty: 30 0RF
lisinopril 5 mg Tablet
5 mg PO DAILY 30 Days Qty: 30 0RF
metoprolol succinate 25 mg Tablet Extended Release 24 Hr
25 mg PO DAILY 30 Days Qty: 30 0RF
Continued
levothyroxine [Synthroid] 150 mcg tablet
150 mcg PO DAILY
multivitamin Tablet
1 tab PO DAILY
Discontinued
norgestimate-ethinyl estradiol [Estarylla] 0.25-35 mg-mcg tablet
1 tab PO HS
--- NOTE | 2023-09-10 15:30 | PTCARENOTE ---
IV line and tele monitor d/c'ed. discharge instructions, medication list and follow up appointments reviewed w the pt, emotional support provided and questions encouraged. pt waiting for ride to arrive.
--- NOTE | 2023-09-11 07:56 | PN.CDI ---
CDI
- -
CDI:
Physician Documentation Request
Admit Date: 09/08/23 16:57
Dear Doctor Conor,
Please review the following and provide your response in the progress notes.
Clinical Indicators:
- Patient admit with chest pain
- 09/09 DC summary diagnosis 'NSTEMI, s/p cardiac catheterization'
- 'Patient underwent coronary catheterization found with nonobstructive coronary artery disease'
- 09/09 Denitrator 'Elevated troponin with nonobstructive coronary disease'
Please clarify the following regarding the documented elevated troponins:
Non ischemic myocardial injury
Myocardial infarction with coronary microvascular disease
NSTEMI
Other
Use of terms such as suspected, likely, concern for, or probable (associated with a specific diagnosis that is being evaluated, monitored, or treated as if it exists) are acceptable and can be coded in the inpatient setting, when documented at the
time of discharge.
Thank you,
Renae Mujica RN
CDI Specialist
Please use your independent medical judgment in providing your response.
== END 2023-09-10 16:30 | disposition home or self-care (01) | DRG 281 ==
LOC: IVU 16:57
PROVIDERS: Nurse Practitioner; Physician Assistant; ADMITTING PHYSICIAN Internal Medicine; ATTENDING PHYSICIAN Hospitalist; CONSULT PHYSICIAN Internal Medicine Cardiovascular Disease; EMERGENCY PHYSICIAN Emergency Medicine; FAMILY PHYSICIAN Internal Medicine
PROC: B2111ZZ Fluoroscopy of Multiple Coronary Arteries using Low Osmolar Contrast (ICD-10-PCS; 2023-09-10)
PROC: B2151ZZ Fluoroscopy of Left Heart using Low Osmolar Contrast (ICD-10-PCS; 2023-09-10)
PROC: 4A023N7 Measurement of Cardiac Sampling and Pressure, Left Heart, Percutaneous Approach (ICD-10-PCS; 2023-09-10)
DX: I21.4 Non-ST elevation (NSTEMI) myocardial infarction (principal); E87.1 Hypo-osmolality and hyponatremia; I16.1 Hypertensive emergency; I25.10 Atherosclerotic heart disease of native coronary artery without angina pectoris; E89.0 Postprocedural hypothyroidism; Z79.02 Long term (current) use of antithrombotics/antiplatelets
CPT/HCPCS: 71046; 71275; 80053; 80061; 81025; 83735; 84484; 85025; 85027; 85379; 85652; 85730; 86140; 93005; 93306; 93458; 96365; 96366; 99285; C1894; Q9967